=== PATIENT | female | born 1985 | race Caucasian/White ===

== ENCOUNTER 2018-01-31 13:34 | Emergency (ER) | payer BC ==
[2018-01-31] MEDS ORDERED: Aspirin 81 MG Tab.EC PO ONE (13:50)
[2018-01-31] MEDS ORDERED: Nitroglycerin 0.4 MG Tab.SL SL ONE ×2 (14:11→14:16)
[2018-01-31 14:16] LABS: CHLORIDE,CL 103 mEq/L (98-106); SODIUM,NA 134 mEq/L (136-145)
[2018-01-31] MEDS ORDERED: Ketorolac 60 MG/2 ML SDV IM ONE (14:21)
--- NOTE | 2018-01-31 14:29 | EDM.PDOC ---
ED HPI GENERAL MEDICAL PROBLEM - General Chief Complaint: Chest Pain Stated Complaint: CP Time Seen by Provider: 01/31/18 13:58 Source of Information: Reports: Patient History Limitations: Reports: No Limitations - History of Present Illness INITIAL COMMENTS - FREE TEXT/NARRATIVE: Patient presents to the ER with a one hour history of left chest discomfort. States does radiate to the back. Denies shortness of breath, nausea, vomiting or heartburn. She denies any lifting injury or straining. She admits to a headache with this as well. No notable blood in her stools. Thought possibly related to heartburn so took TUMS without much relief. 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(s) (tums) Chest Pain Score (Numeric/FACES): 8 - Related Data Allergies Allergy/AdvReac Type Severity Reaction Status Date / Time norgestimate-ethinyl Allergy Rash Verified 06/04/17 14:50 estradiol [From Ortho-Cyclen (21)] Penicillins Allergy Rash Verified 06/04/17 14:50 Home Meds: Home Meds Ibuprofen 600 mg PO Q8HR PRN 06/04/17 [History] Sertraline HCl 100 mg PO DAILY 06/04/17 [History] diphenhydrAMINE HCl [Z-Sleep] 25 mg PO BEDTIME PRN 01/31/18 [History] Past Medical History HEENT History: Reports: None Cardiovascular History: Reports: None Other Cardiovascular History: Pt states she has "Venous reflux" in her legs Respiratory History: Reports: None Gastrointestinal History: Reports: None Genitourinary History: Reports: None Musculoskeletal History: Reports: None Neurological History: Reports: None Psychiatric History: Reports: Anxiety, Depression Endocrine/Metabolic History: Reports: None Hematologic History: Reports: Other (See Below) Other Hematologic History: Factor 5 Immunologic History: Reports: None Oncologic (Cancer) History: Reports: None Dermatologic History: Reports: None - Infectious Disease History Infectious Disease History: Reports: None - Past Surgical History HEENT Surgical History: Reports: Tonsillectomy Cardiovascular Surgical History: Reports: None Respiratory Surgical History: Reports: None GI Surgical History: Reports: Bariatric Procedure Female Surgical History: Reports: None Endocrine Surgical History: Reports: None Neurological Surgical History: Reports: None Musculoskeletal Surgical History: Reports: None Oncologic Surgical History: Reports: None Social & Family History - Family History Family Medical History: Noncontributory - Tobacco Use Smoking Status *Q: Never Smoker - Caffeine Use Caffeine Use: Reports: None - Alcohol Use Days Per Week of Alcohol Use: 1 Number of Drinks Per Day: 2 Total Drinks Per Week: 2 - Recreational Drug Use Recreational Drug Use: No - Living Situation & Occupation Living situation: Reports: with Family ED ROS GENERAL - Review of Systems Review Of Systems: See Below Constitutional: Reports: Weakness. Denies: Fever, Chills, Malaise HEENT: Reports: No Symptoms Respiratory: Denies: Shortness of Breath, Cough Cardiovascular: Reports: Chest Pain. Denies: Edema, Lightheadedness Endocrine: Reports: No Symptoms GI/Abdominal: Denies: Abdominal Pain, Decreased Appetite, Nausea, Vomiting : Reports: No Symptoms Musculoskeletal: Reports: No Symptoms Skin: Reports: No Symptoms Neurological: Reports: No Symptoms ED EXAM, GENERAL - Physical Exam Exam: See Below Exam Limited By: No Limitations General Appearance: Alert, WD/WN, No Apparent Distress Ears: Normal External Exam, Normal TMs Nose: Normal Inspection, Normal Mucosa, No Blood Throat/Mouth: Normal Inspection, Normal Oropharynx Head: Normocephalic Neck: Normal Inspection, Supple, Non-Tender Respiratory/Chest: No Respiratory Distress, Lungs Clear, Normal Breath Sounds Cardiovascular: Regular Rate, Rhythm GI/Abdominal: Normal Bowel Sounds, Soft, Non-Tender Extremities: Normal Inspection, Other (chest wall tender to palpation) Neurological: Alert, Oriented Psychiatric: Normal Affect, Normal Mood Skin Exam: Warm, Dry Course - Vital Signs Last Recorded V/S: Last Vital Signs Temp 95.6 F 01/31/18 13:45 Pulse 71 01/31/18 13:45 Resp 18 01/31/18 13:45 BP 142/89 H 01/31/18 14:34 Pulse Ox - Orders/Labs/Meds Orders: Active Orders 24 hr Category Date Time Status Chest 2V [CR] Stat Exams 01/31/18 13:50 Taken Labs: Laboratory Tests 01/31/18 01/31/18 01/31/18 Range/Units 13:50 13:50 13:50 WBC 7.0 (5.0-10.0) 10^3/uL RBC 4.54 (4.00-5.50) 10^6/uL Hgb 12.9 (12.0-16.0) g/dL Hct 39.9 (37.0-47.0) % MCV 87.9 (82.0-94.0) fL MCH 28.4 (27.0-32.0) pg MCHC 32.3 L (33.0-38.0) g/dL RDW Coeff of Mauri 13.5 (11.0-15.0) % Plt Count 200 (150-400) 10^3/uL Neut % (Auto) 63.2 (35-85) % Lymph % (Auto) 28.1 (10-55) % Henderson % (Auto) 6.2 (0-16) % Eos % (Auto) 2.1 (0-5) % Baso % (Auto) 0.4 (0-3) % Neut # (Auto) 4.41 (1.80-7.00) 10^3/uL Lymph # (Auto) 1.96 (1.00-4.80) 10^3/uL Henderson # (Auto) 0.43 (0.00-0.80) 10^3/uL Eos # (Auto) 0.15 (0.00-0.45) 10^3/uL Baso # (Auto) 0.03 10^3/uL PT 10.2 (9.7-12.3) SEC INR 0.98 (0.92-1.18) APTT 27.6 (20.0-45.0) SEC Sodium 134 L (136-145) mEq/L Potassium 3.6 (3.5-5.0) mEq/L Chloride 103 (98-106) mEq/L Carbon Dioxide 29 (21-32) mmol/L BUN 15 (7-18) mg/dL Creatinine 1.0 (0.6-1.0) mg/dL Est Cr Clr Drug Dosing 99.07 mL/min Estimated GFR (MDRD) > 60 (>=60) mL/min Glucose 111 H (75-99) mg/dL Calcium 8.6 (8.4-10.1) mg/dL Total Bilirubin 0.3 (0.0-1.0) mg/dL AST 55 H (15-37) U/L ALT 57 (12-78) U/L Alkaline Phosphatase 71 (46-116) U/L Lactate Dehydrogenase 210 H (100-190) U/L Creatine Kinase 149 (21-215) U/L Troponin I < 0.017 (0.00-0.06) ng/mL Total Protein 7.4 (6.4-8.2) g/dL Albumin 3.3 L (3.4-5.0) g/dL Amylase 27 (25-115) U/L Meds: Medications Discontinued Medications Generic Name Dose Route Start Last Admin Trade Name Екатерина PRN Reason Stop Dose Admin Aspirin 324 mg 01/31/18 13:50 01/31/18 14:12 Halfprin PO 01/31/18 13:51 324 mg ONETIME ONE Administration Ketorolac Tromethamine 60 mg 01/31/18 14:21 01/31/18 14:29 Toradol IM 01/31/18 14:22 60 mg ONETIME ONE Administration Nitroglycerin 0.4 mg 01/31/18 14:11 01/31/18 13:57 Nitrostat SL 01/31/18 14:12 0.4 mg ONETIME ONE Administration Nitroglycerin 0.4 mg 01/31/18 14:16 01/31/18 14:17 Nitrostat SL 01/31/18 14:17 0.4 mg ONETIME ONE Administration - Re-Assessments/Exams Free Text/Narrative Re-Assessment/Exam: 01/31/18 14:35 Labs all normal. Will give Toradol as pain unchanged from nitro. 01/31/18 15:20 Headache improved, chest wall pain down to a 5. Departure - Departure Time of Disposition: 15:23 Disposition: Home, Self-Care 01 Condition: Good Clinical Impression: Atypical chest pain Referrals: Stanley Wallace MD [Primary Care Provider] - Forms: ED Department Discharge Additional Instructions: 1. Rest 2. Meloxicam 15 daily for chest wall discomfort 3. Follow up if any ongoing concerns. - My Orders Last 24 Hours: My Active Orders 01/31/18 13:50 Chest 2V [CR] Stat - Assessment/Plan Last 24 Hours: My Active Orders 01/31/18 13:50 Chest 2V [CR] Stat
[2018-01-31 14:34] VITALS: BP 142/89
== END 2018-01-31 15:50 | disposition home or self-care (01) ==
LOC: CC.ED 13:34
DX: R07.89 Other chest pain (principal); Z88.0 Allergy status to penicillin; Z79.899 Other long term (current) drug therapy
CPT/HCPCS: 36415; 71046; 80053; 82150; 82550; 83615; 84484; 85025; 85610; 85730; 93005; 96372; 99285; A9270-GY; J1885

== ENCOUNTER 2019-12-17 15:59 | Emergency (ER) | payer BC ==
[2019-12-17 16:08] VITALS: BP 153/96; PULSE 95
[2019-12-17] MEDS ORDERED: Ketorolac 60 MG/2 ML SDV IM ONE (17:22)
--- NOTE | 2019-12-17 17:26 | EDM.PDOC ---
ED HPI GENERAL MEDICAL PROBLEM - General Chief Complaint: General Stated Complaint: BACK PAIN Time Seen by Provider: 12/17/19 16:18 Source of Information: Reports: Patient History Limitations: Reports: No Limitations - History of Present Illness INITIAL COMMENTS - FREE TEXT/NARRATIVE: PT presents to the ER with increasing pain to the paraspinal muscles of the right thoracic back. She denies any falls, heavy lifting, pushing or other injury. 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 She states the pain has become very intense since it started yesterday afternoon. She has taken advil without any relief. She has increase in pain with any movement of the right arm and sitting up or laying down. No numbness or tingling or radiation of the pain down her back or arm. No neck pain with it but it does radiate up to the scapular region. 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, NSAIDS Middle Back Pain Score (Numeric/FACES): 10 - Related Data Allergies Allergy/AdvReac Type Severity Reaction Status Date / Time norgestimate-ethinyl Allergy Rash Verified 12/17/19 16:09 estradiol [From Ortho-Cyclen (21)] Penicillins Allergy Rash Verified 12/17/19 16:09 Home Meds: Home Meds Ibuprofen 600 mg PO Q8HR PRN 06/04/17 [History] Acetaminophen [Tylenol Extra Strength] 1,000 mg PO ASDIRECTED PRN 12/17/19 [ History] PARoxetine [Paxil] 20 mg PO DAILY 12/17/19 [History] Temazepam 30 mg PO BEDTIME PRN 12/17/19 [History] Past Medical History HEENT History: Reports: None Cardiovascular History: Reports: None Other Cardiovascular History: Pt states she has "Venous reflux" in her legs Respiratory History: Reports: None Gastrointestinal History: Reports: None Genitourinary History: Reports: None Musculoskeletal History: Reports: None Neurological History: Reports: None Psychiatric History: Reports: Anxiety, Depression Endocrine/Metabolic History: Reports: None Hematologic History: Reports: Other (See Below) Other Hematologic History: Factor 5 Immunologic History: Reports: None Oncologic (Cancer) History: Reports: None Dermatologic History: Reports: None - Infectious Disease History Infectious Disease History: Reports: None - Past Surgical History HEENT Surgical History: Reports: Tonsillectomy Cardiovascular Surgical History: Reports: None Respiratory Surgical History: Reports: None GI Surgical History: Reports: Appendectomy, Bariatric Procedure, Cholecystectomy Female Surgical History: Reports: None, Section Other Female Surgeries/Procedures: c section x3 Endocrine Surgical History: Reports: None Neurological Surgical History: Reports: None Musculoskeletal Surgical History: Reports: None Oncologic Surgical History: Reports: None Social & Family History - Family History Family Medical History: Noncontributory - Tobacco Use Smoking Status *Q: Never Smoker - Caffeine Use Caffeine Use: Reports: Soda - Recreational Drug Use Recreational Drug Use: No - Living Situation & Occupation Living situation: Reports: with Family ED ROS GENERAL - Review of Systems Review Of Systems: See Below Constitutional: Denies: Fever, Chills Musculoskeletal: Reports: Back Pain, Muscle Pain. Denies: Arm Pain Skin: Denies: Bruising, Wound ED EXAM, GENERAL - Physical Exam Exam: See Below Exam Limited By: No Limitations General Appearance: Alert, WD/WN, Moderate Distress Neck: Normal Inspection, Supple, Non-Tender, Full Range of Motion Respiratory/Chest: No Respiratory Distress, Lungs Clear, Normal Breath Sounds, Chest Non-Tender Cardiovascular: Regular Rate, Rhythm GI/Abdominal: Normal Bowel Sounds, Soft, Non-Tender Back Exam: Normal Inspection, Paraspinal Tenderness (tender to palpation or movement on the right paraspinal area. With palpation it will radiate to the right scapula region. No radiation down the arm. Moving the right arm up does aggrevate the pain. hand grasps are equal bilaterally. No numbness or tingling noted. No bruising or redness note to the area.) Extremities: Normal Capillary Refill Neurological: Alert, Oriented Skin Exam: Warm, Dry, Intact Course - Vital Signs Last Recorded V/S: Last Vital Signs Temp 97.4 F 12/17/19 16:00 Pulse 95 12/17/19 16:00 Resp 18 12/17/19 16:00 BP 153/96 H 12/17/19 16:00 Pulse Ox 100 12/17/19 16:00 - Orders/Labs/Meds Orders: Active Orders 24 hr Category Date Time Status Thoracic Spine 3V [CR] Stat Exams 12/17/19 16:22 Taken Meds: Medications Discontinued Medications Generic Name Dose Route Start Last Admin Trade Name Freq PRN Reason Stop Dose Admin Ketorolac Tromethamine 60 mg 12/17/19 17:22 12/17/19 17:28 Toradol IM 12/17/19 17:23 60 mg ONETIME ONE Administration Orphenadrine Citrate 60 mg 12/17/19 17:30 12/17/19 17:30 Norflex IM 60 mg Q12H RASHARD Administration - Re-Assessments/Exams Free Text/Narrative Re-Assessment/Exam: 12/17/19 1715 Discussed normal Thoracic spine xray. Will give shots as ordered. Order sent to PT to start tomorrow. Phone number give to pt and requested her to call them in the AM for an appt. Prescriptions given to start meds in the morning Departure - Departure Time of Disposition: 17:22 Disposition: Home, Self-Care 01 Condition: Good Clinical Impression: Muscle spasm of back - Discharge Information *PRESCRIPTION DRUG MONITORING PROGRAM REVIEWED*: Not Applicable *COPY OF PRESCRIPTION DRUG MONITORING REPORT IN PATIENT DARLENE: Not Applicable Instructions: Muscle Cramps and Spasms, [id number] Referrals: Stanley Wallace MD [Primary Care Provider] - Forms: ED Department Discharge Additional Instructions: call PT tomorrow for appt. [phone] Toradol 10 mg every 8 hours as needed- start in the AM. Flexeril twice as day for muscle spasm.- start in the AM Sepsis Event Note - Evaluation Sepsis Screening Result: No Definite Risk - Focused Exam Date Exam was Performed: 12/18/19 Time Exam was Performed: 07:26 - Problem List & Annotations (1) Muscle spasm of back SNOMED Code(s): 098792350 Code(s): M62.830 - MUSCLE SPASM OF BACK Status: Acute Priority: High - Problem List Review Problem List Initiated/Reviewed/Updated: Yes - My Orders Last 24 Hours: My Active Orders 12/17/19 16:22 Thoracic Spine 3V [CR] Stat - Assessment/Plan Last 24 Hours: My Active Orders 12/17/19 16:22 Thoracic Spine 3V [CR] Stat
== END 2019-12-17 17:42 | disposition home or self-care (01) ==
LOC: CC.ED 15:59 → SUPCPDRO 15:59 → CC.ED 17:42
DX: M62.830 Muscle spasm of back (principal); F41.9 Anxiety disorder, unspecified; F32.9 Major depressive disorder, single episode, unspecified; Z88.0 Allergy status to penicillin; Z79.899 Other long term (current) drug therapy
CPT/HCPCS: 72072; 96372; 99283-25; J1885; J2360